=== PATIENT | female | born 1985 | race Caucasian/White ===

== ENCOUNTER 2017-01-03 09:41 | Emergency (ER) | payer OTHER ==
[~2017-01-03] VITALS: Ht 175.3 cm; Wt 88.9 kg
[2017-01-03] MEDS ORDERED: ENDOCET 5-3251 EACH PO (12:24)
[2017-01-03] MEDS ORDERED: MOTRIN600 MG PO (12:24)
[2017-01-03 12:42] VITALS: BP 110/72
== END 2017-01-03 12:45 | disposition home or self-care (01) ==
LOC: EME 09:41
DX: S80.01XA Contusion of right knee, initial encounter (principal); S80.211A Abrasion, right knee, initial encounter; W18.30XA Fall on same level, unspecified, initial encounter; Y93.64 Activity, baseball; Z72.0 Tobacco use
CPT/HCPCS: 73564; 99281; 99283